=== PATIENT | male | born 1940 | race Caucasian/White ===

== ENCOUNTER 2019-01-13 12:40 | Emergency (ER) | payer OTHER, BC | END 2019-01-13 15:16 | disposition home or self-care (01) | LOC: FER 12:40 ==

== ENCOUNTER 2020-08-25 16:45 | Emergency (ER) | payer OTHER, BC ==
[2020-08-25 16:53] VITALS: BP 148/95; PULSE 86; TEMP 98.5; BMI 28.5
[2020-08-25] MEDS ORDERED: CEPHALEXIN MONOHYDRATE 500 MG CAPSULE (UD) PO ONE (17:15)
[2020-08-25] MEDS ORDERED: SULFAMETHOXAZOLE/TRIMETHOPRIM 800MG/160MG D.S. TABLET PO ONE (17:15)
[2020-08-25] MEDS ORDERED: CEPHALEXIN MONOHYDRATE 500 MG CAPSULE (UD) ONE (17:16)
[2020-08-25] MEDS ORDERED: SULFAMETHOXAZOLE/TRIMETHOPRIM 800MG/160MG D.S. TABLET ONE (17:16)
[2020-08-25] MEDS ORDERED: DIPHTH,PERTUSS(ACELL),TET 0.5 ML DISP.SYRIN IM ONE ×2 (17:19→17:20)
== END 2020-08-25 17:55 | disposition home or self-care (01) ==
LOC: FER 16:45
PROC: 3E0234Z Introduction of Serum, Toxoid and Vaccine into Muscle, Percutaneous Approach (ICD-10-PCS; principal; 2020-08-25)
DX: S81.801A Unspecified open wound, right lower leg, initial encounter (principal)
CPT/HCPCS: 90715; 99284-25

== ENCOUNTER 2022-05-28 12:50 | Emergency (ER) | payer OTHER, BC ==
[2022-05-28 13:23] VITALS: BP 150/89; PULSE 75; RESP 18; TEMP 97.9; BMI 28.4
[2022-05-28] MEDS ORDERED: TETRACAINE 0.5% OPHTH SOLN 2 ML BOTTLE ONE (17:22)
== END 2022-05-28 14:54 | disposition home or self-care (01) ==
LOC: FER 12:50
DX: H61.91 Disorder of right external ear, unspecified (principal)
CPT/HCPCS: 99283-25

== ENCOUNTER 2023-02-03 14:09 | Emergency (ER) | payer OTHER, BC ==
[2023-02-03 14:34] VITALS: BP 149/99; PULSE 58; RESP 20; TEMP 97.9; BMI 26.4
== END 2023-02-03 15:11 | disposition home or self-care (01) ==
LOC: FER 14:09
DX: S51.812A Laceration without foreign body of left forearm, initial encounter (principal); X58.XXXA Exposure to other specified factors, initial encounter
CPT/HCPCS: 99282-25